=== PATIENT | female | born 1950 | race Caucasian/White ===

== ENCOUNTER → 2017-02-04 | Outpatient (CLI) | payer OTHER | LOC: FIMAGING 08:35 | PROVIDERS: ATTEND Physical Medicine & Rehabilitation | DX: M51.36 Other intervertebral disc degeneration, lumbar region (principal); M12.88 Other specific arthropathies, not elsewhere classified, other specified site; M99.73 Connective tissue and disc stenosis of intervertebral foramina of lumbar region; M51.27 Other intervertebral disc displacement, lumbosacral region ==

== ENCOUNTER 2018-05-09 08:52 | Observation (INO) | payer OTHER ==
[~2018-05-09 08:52] MED LIST: POVIDONE-IODINE 20 ML in SODIUM CL IRRIG SOLUTION 500 ML IRR ONE; ROPIVACAINE 0.2% 80 MG, EPINEPHrine 0.2 MG in SYRINGE 0 ML IU ONE; TRANEXAMIC ACID 1,000 MG in NS 100 ML IV ONE; TRANEXAMIC ACID 3,000 MG in NS (SYRINGE) 50 ML IRR ONE
[2018-05-09] MEDS ORDERED: DEXAMETHASONE 4 MG/ML VIAL IVP ONE (09:17)
[2018-05-09] MEDS ORDERED: ceFAZolin 2 GM/DEXTROSE 100 ML IV ONE (09:17)
[2018-05-09] MEDS ORDERED: FAMOTIDINE 20 MG TAB PO ONE (09:17)
[2018-05-09] MEDS ORDERED: LIDOCAINE 1% 2 ML INJ ID PRN (09:17)
[2018-05-09] MEDS ORDERED: ONDANSETRON 4 MG/2 ML VIAL IVP ONE (09:17)
[2018-05-09] MEDS ORDERED: LR 1,000 ML IV ONE (09:17)
[2018-05-09] MEDS ORDERED: GABAPENTIN 300 MG CAP PO ONE (09:17)
[2018-05-09] MEDS ORDERED: ACETAMINOPHEN 325 MG TAB PO ONE (09:17)
--- NOTE | 2018-05-09 09:50 | POSTANESTH ---
Post Anesthetic Evaluation Cardiovascular Status: Normal, Stable Respiratory Status: Normal, Stable Level of Consciousness/Mental Status: Can Participate in Eval, Mildly Sleepy, Arousable Pain Control: Adequate, Prn Tx Ordered Nausea/Vomiting Control: Adequate, Prn Tx Ordered Complications Possibly Related to Anesthesia: None Noted
--- NOTE | 2018-05-09 10:09 | PDANEPAE ---
ANE History of Present Illness 67 yo female with DEONTE for R TKA. ANE Past Medical History - Cardiovascular History Hx Hypertension: No Hx Arrhythmias: No Hx Chest Pain: No Hx Coronary Artery / Peripheral Vascular Disease: No Hx CHF / Valvular Disease: No Hx Palpitations: No Cardiovascular History Comment: high cholesterol - Pulmonary History Hx COPD: No Hx Asthma/Reactive Airway Disease: No Hx Recent Upper Respiratory Infection: No Hx Oxygen in Use at Home: No Hx Sleep Apnea: Yes Sleep Apnea Screening Result - Last Documented: Positive Pulmonary History Comment: deonte positive uses cpap - Neurologic History Hx Cerebrovascular Accident: No Hx Seizures: No Hx Dementia: No Neurologic History Comment: restless leg syndrome - Endocrine History Hx Diabetes: No Hypothyroid: No Hyperthyroid: No Obesity: mild - Renal History Hx Renal Disorders: No Renal History Comment: kidneys had issues when she received high doses of ibuprofen 9 or 10 years ago - Liver History Hx Hepatic Disorders: No - Neurological & Psychiatric Hx Hx Neurological and Psychiatric Disorders: Yes Neurological / Psychiatric History Comment: depression - Cancer History Hx Cancer: Yes 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 HX HEMORRHOIDS - Other Health History Other Health History: wears glasses. arthritis to spine and knees - Chronic Pain History Chronic Pain: Yes (bilateral knees, hips and spine) - Surgical History Prior Surgeries: 2018 left hand trigger finger repair with [place]. 07/08/14 right shoulder RTC repair with [facility]. ANGIOGRAM NL 20 Y AGO FOR PALPATATIONS. L MID TRIGGER FINGER . BALLOON SINUS SURG . PART LUMPECTOMY R BENIGN, 4 Y AGO. SILICONE IMPLANTS DARLENE TEAR DUCTS. . APPY. DARLENE FOOT SURG. D AND C. TONSILS ANE Review of Systems Review of Systems: - Exercise capacity METS (RN): 4 METS - Systems Constitutional: Reports: no symptoms Cardiac: Reports: no symptoms Respiratory: Reports: no symptoms Muscolosketal: Reports: back pain, joint pain ANE Patient History - Allergies Allergies/Adverse Reactions: ibuprofen Allergy (Unknown, Verified 05/08/18 14:17) Other-Enter Comments Penicillins Allergy (Unknown, Verified 05/08/18 14:17) Dyspnea - Home Medications Home Medications: Ezetimibe [Zetia 10 MG (*)] 10 mg PO HS 06/26/14 [Last Taken 05/08/18] rOPINIRole HCL [Requip 1mg (*)] 1 mg PO HS 06/26/14 [Last Taken 05/08/18] Gabapentin [Neurontin 300 MG (*)] 300 mg PO TID@,04/24/18 [Last Taken 05/08] traZODone [traZODONE 50MG (*)] 50 mg PO HS 04/24/18 [Last Taken 05/08/18] Atorvastatin Calcium [Lipitor 40 mg (*)] 40 mg PO HS 05/08/18 [Last Taken ] Gabapentin [Neurontin 300 MG (*)] 300 mg PO HS 05/08/18 [Last Taken 05/08/18] rOPINIRole HCL [Ropinirole ER] 2 mg PO HS 05/08/18 [Last Taken 05/08/18] - NPO status NPO Since - Liquids (Date): 05/09/18 NPO Since - Liquids (Time): 07:00 (8 oz Gatorade) NPO Since - Solids (Date): 05/08/18 NPO Since - Solids (Time): 21:00 - Anes Hx Hx Anesthesia Complications (with details): pentothal caused an unpleasant feeling - Smoking Hx Smoking Status: Never smoked Marijuana use: No - Alcohol Use Alcohol Use: None - Family Anes Hx Family Anes Hx: neg - N/A Family Hx Anesthesia Complications: NONE ANE Labs/Vital Signs - Vital Signs Blood Pressure: 136/68 Heart Rate: 69 Respiratory Rate: 18 O2 Sat (%): 94 (ranged from 86-94% during interview) Height: 162.56 cm Weight: 86.183 kg ANE Physical Exam - Airway Mallampati Score: Class 3 (short TMD) Mouth exam: normal dental/mouth exam, small mouth opening - Pulmonary Pulmonary: clear to auscultation - Cardiovascular Cardiovascular: regular rate and rhythym - ASA Status ASA Status: III ANE Anesthesia Plan Anesthesia Plan: spinal Regional Anesthesia: continuous NB, adductor canal FNB, POPC/PSR
[2018-05-09] MEDS ORDERED: VANCOMYCIN 1 GM VIAL ONE (10:15)
[2018-05-09] MEDS ORDERED: TRANEXAMIC ACID 3,000 MG/50 ML BAG IRR ONE (10:15)
[2018-05-09] MEDS ORDERED: ceFAZolin 1 GM/5 ML SYR ONE (10:16)
[2018-05-09] MEDS ORDERED: fentaNYL 100 MCG/2 ML INJ ONE (10:29)
[2018-05-09] MEDS ORDERED: LIDOCAINE 2% 5 ML SDV ONE (10:29)
[2018-05-09] MEDS ORDERED: PROPOFOL/EMULSION 500 MG/50 ML BOTTLE IV ONE ×2 (10:30)
[2018-05-09] MEDS ORDERED: BUPIVACAINE/DEXTROSE 7.5MG/ML 2 ML SPINAL AMP SP ONE (10:30)
[2018-05-09] MEDS ORDERED: ROPIVACAINE HCL 150 MG/30 ML INJ ONE (11:45)
[2018-05-09] MEDS ORDERED: ALBUTEROL 3 ML DEYVIAL IH PRN (12:30)
[2018-05-09] MEDS ORDERED: fentaNYL 100 MCG/2 ML INJ IVP PRN (12:30)
[2018-05-09] MEDS ORDERED: PROMETHAZINE HCL 25 MG/ML INJ IVP PRN ×2 (12:30→12:51)
[2018-05-09] MEDS ORDERED: NALOXONE HCL 0.4 MG/ML INJ IVP PRN (12:30)
[2018-05-09] MEDS ORDERED: oxyCODONE IR 5 MG TAB PO PRN ×2 (12:30→12:51)
[2018-05-09] MEDS ORDERED: LR 500 ML IV PRN (12:30)
[2018-05-09] MEDS ORDERED: DIAZEPAM 5 MG/ML 1 ML SYR IVP PRN (12:30)
[2018-05-09] MEDS ORDERED: diphenhydrAMINE 25 MG CAP PO PRN (12:51)
[2018-05-09] MEDS ORDERED: NS 500 ML IV PRN (12:51)
[2018-05-09] MEDS ORDERED: MAGNESIUM HYDROXIDE 30 ML UDCUP PO PRN (12:51)
[2018-05-09] MEDS ORDERED: BISACODYL 10 MG SUPP PR PRN (12:51)
[2018-05-09] MEDS ORDERED: CYCLOBENZAPRINE 10 MG TAB PO PRN (12:51)
[2018-05-09] MEDS ORDERED: ONDANSETRON DISINTEGRATING 4 MG TAB PO PRN (12:51)
[2018-05-09] MEDS ORDERED: DIPHENOXYLATE/ATROPINE LOMOTIL 1 TAB PO PRN (12:51)
[2018-05-09] MEDS ORDERED: PROMETHAZINE HCL 25 MG SUPPR PR PRN (12:51)
[2018-05-09] MEDS ORDERED: ONDANSETRON 4 MG/2 ML VIAL IVP PRN (12:51)
[2018-05-09] MEDS ORDERED: LACTULOSE 20 GM/30 ML UDCUP PO PRN (12:51)
[2018-05-09] MEDS ORDERED: METOCLOPRAMIDE 10 MG/2 ML VIAL IVP PRN (12:51)
[2018-05-09] MEDS ORDERED: POLYETHYLENE GLYCOL 3350 17 GM PKT PO PRN (12:51)
[2018-05-09] MEDS ORDERED: TEMAZEPAM 15 MG CAP PO PRN (12:51)
--- NOTE | 2018-05-09 12:51 | PDHPUP ---
History & Physical Update H&P update statement: This history and physical update is based on an assessment of the patient which was completed after admission or registration (within 24 hours), but prior to the surgery/procedure. H&P update: H&P reviewed & patient examined
--- NOTE | 2018-05-09 12:52 | POSTOPPROG ---
Post Op Note Date of Operation: 05/09/18 Surgeon: Deo Harding Kiln Placer: Stuart Anesthesiologist: Rahel Anesthesia: IV Sedation, Spinal Post-op Diagnosis: left knee arthtitis Procedure: L TKA Inf/Abcess present in the surg proc area at time of surgery?: No EBL: 50-100 (ACB in PACU)
[2018-05-09] MEDS ORDERED: LR 1,000 ML IV SCH (13:00)
--- NOTE | 2018-05-09 13:22 | GOP ---
DATE OF OPERATION: 05/09/2018 SURGEON: Deo Harding MD CLIENT SUPPORT PROFESSIONAL: ALMAZ Santacruz [facility] ANESTHESIA: Combination of Marcaine spinal, IV sedation, and adductor canal block. ANESTHESIOLOGIST: Yolanda Khan MD PREOPERATIVE DIAGNOSIS: Left knee severe degenerative arthritis. POSTOPERATIVE DIAGNOSIS: Left knee severe degenerative arthritis. PROCEDURE PERFORMED: 05/09/2018: Left total knee arthroplasty, cemented, Baird and Nephew Journey I I, posterior stabilized. FINDINGS: ESTIMATED BLOOD LOSS: Following inflation of the tourniquet was about 100 cc. DESCRIPTION OF PROCEDURE: The patient was given 2 g of IV Ancef preoperatively within 60 minutes of surgery. She also received 1000 mg of IV tranexamic acid preoperatively. She was placed on the oper ating room table and given spinal anesthesia with Marcaine by Dr. Khan. She was then placed supin e and given IV sedation. A Velasco catheter was not used. She wore a SUZY stocking and SCD on the nono perative leg. A bolster was placed under her left hip to prevent excessive external rotation of the left leg. Her left lower extremity was prepped with ChloraPrep from the upper thigh tourniquet to th e tips of the toes. It was draped free using sterile sheets, stockinette, and Ioban plastic adhesive drapes. Her lower leg was wrapped with compressive Coban. The leg was exsanguinated with elevation and a 6-inch compressive wrap, and the tourniquet was inflated to 250 mmHg. The World Health Organization timeout was performed to verify the correct patient identity and the co rrect surgical side and site. The [place] timeout was also performed. The Garibay leg holding device was sterilely attached to the operating room table and used throughout the procedure to help position the knee. A straight midline incision was made, centered on the santa lla. Subcutaneous tissues were sharply divided and hemostasis was obtained using electrocautery. A medial subcutaneous flap was developed, and the capsule and synovium were opened in a medial parapate llar fashion. Extensive degenerative changes were present in the medial compartment and, to a lesser degree, in the patellofemoral joint. The medial capsule and periosteum were elevated off the rim of the medial tibial plateau all the way around to the posteromedial corner. Her medial collateral lig ament was released enough to balance the medial side of the knee. In order to improve exposure, her patella was prepared first. The original thickness of the patella was measured. Peripheral osteophytes were removed. I cut a flat surface on the back of the patella. She was sized for a 35 mm round resurfacing component. I removed enough bone from the patella, suc h that the remaining bone plus the thickness of the patellar component recreated the original thickne ss of the patella. A composite thickness was 23 mm. The intramedullary alignment guide system was used to set up the distal femoral cut. The distal femu r was cut in 5 degrees of valgus. Because of a slight preoperative flexion contracture and because I was using a posterior stabilized component, I made a +2 mm cut on the distal femur. The sizing jig was used to determine proper femoral sizing. She was a true size 5. The 5-in-1 cutting block was ap plied, and the anterior and posterior condylar cuts and chamfer cuts were made. The final jig was us ed to remove the central portion of the distal femur to accommodate the posterior stabilized femoral component. I was careful to determine proper rotation by referencing off [place]'s line and other bony landmarks. Each cut was checked for accuracy. The femur was sized for a size 5 posterior stabi lized component. The trial component was tapped securely into place and was a good fit. Next, the tibia was prepared. Proximal tibial cut was made using the extramedullary alignment guide system. The cut was made in a few degrees of posterior slope. I was careful to achieve proper varus /valgus alignment and proper rotation. The posterior compartment was cleared of meniscal remnants. Osteophytes were removed from the back of her femoral condyles. I checked the flexion extension gaps , and they were equal, balanced and rectangular. The tibia was sized for a size 4 component. With t he trial components in place, I selected a 10 mm polyethylene posterior stabilized tibial insert. Th e knee came to full extension and flexed to 120 degrees. Her collateral ligaments were stable and ba lanced in 90 degrees of flexion and full extension. The trial patellar button was applied and tracki ng was checked. Tracking was excellent without any digital pressure. 40 mL of the joint anesthetic cocktail were injected into the capsule, the quadriceps muscle and tend on areas, and the subcutaneous tissues along the skin edges. The surfaces were prepared for cementing. They were carefully cleaned with the pulsating lavage irri gation and thoroughly dried. The CarboJet device was used to blow dry the cancellous surfaces. A do uble batch of methylmethacrylate cement with 2 g of powdered vancomycin added was mixed. While it wa s still in a doughy state, all 3 components were cemented in place. Excess cement was removed before it hardened. The 10 mm trial tibial insert was re-tried and was the proper thickness. The actual component was in serted and locked into place. The knee was thoroughly irrigated 1 final time with a dilute Betadine solution. The tourniquet was deflated. The total tourniquet time was 48 minutes. 50 cc of tranexamic acid was irrigated into the wound. The vastus medialis portion of the extensor mechanism was repaired with several interrupted figure-of -eight #2 FiberWire sutures. The capsule and synovium were closed first with multiple interrupted fi [id number] PDS sutures, followed by a running, #2, barbed, Ethicon, Stratafix, PDO suture. Subc utaneous tissues were closed with a running, 0, barbed, Ethicon, Stratafix, Monoderm suture. The ski n was closed with a running, 3-0, barbed, Ethicon, Stratafix, Monoderm, subcuticular suture. The ski n was sealed with half-inch Steri-Strips. The wound was covered with a large, Mepilex, waterproof, s urgical dressing and the knee was wrapped with a Kerlix and a 6-inch compressive wrap. A long-leg TE D stocking and SCD were applied, followed by the cooling device. She wore a stocking and SCD on the opposite leg during the procedure. The sacral Mepilex dressing was applied. I used a size 5 Baird and Nephew cemented Oxinium posterior-stabilized femoral component, size 4 ceme nted tibial base plate, a 10 mm posterior stabilized tibial insert, and a 35 mm cemented round all-po lyethylene resurfacing patellar component. COUNTS: The sponge and needle count were correct on 2 occasions. The patient was awakened from anesthesia, transferred to her [facility] and taken to PACU in sat isfactory condition. There were no recognized intraoperative complications. In the PACU, for additi onal postoperative pain control, Dr. Khan performed an adductor canal block with an indwelling cat heter. Marco A Vasquez and Michael Archuleta acted as surgical assistants. Their assistance was a medical necess ity for safe completion of the procedure. Copy requested to: Lobo Osborne MD [address] [facility] [id number] /[id number]/MODL
[2018-05-09] MEDS ORDERED: ceFAZolin 2 GM/DEXTROSE 100 ML IV SCH (14:00)
[2018-05-09] MEDS: ACETAMINOPHEN 325 MG TAB PO SCH (15:34)
[2018-05-09] MEDS: KETOROLAC 15 MG/1 ML SDV IVP SCH (16:59)
[2018-05-09] MEDS: ceFAZolin 2 GM/DEXTROSE 100 ML IV SCH (16:59)
[2018-05-09] MEDS: GABAPENTIN 300 MG CAP PO SCH (17:00)
[2018-05-09] MEDS ORDERED: traZODone 50 MG TAB PO SCH (21:00)
[2018-05-09] MEDS ORDERED: GABAPENTIN 300 MG CAP PO SCH (21:00)
[2018-05-09] MEDS ORDERED: EZETIMIBE 10 MG TAB PO SCH (21:00)
[2018-05-09] MEDS ORDERED: ROPINIROLE 2 MG PO SCH (21:00)
[2018-05-09] MEDS ORDERED: ATORVASTATIN CALCIUM 40 MG TAB PO SCH (21:00)
[2018-05-09] MEDS: traMADol 50 MG TAB PO PRN (21:18)
[2018-05-09] MEDS: SENNOSIDES/DOCUSATE SODIUM TAB PO SCH (21:18)
[2018-05-09] MEDS: FAMOTIDINE 20 MG TAB PO SCH (21:19)
[2018-05-09] MEDS: ASPIRIN 325 MG TAB PO SCH (21:40)
[2018-05-10] MEDS: KETOROLAC 15 MG/1 ML SDV IVP SCH ×4 (01:11→12:27)
[2018-05-10] MEDS: ACETAMINOPHEN 325 MG TAB PO SCH ×3 (01:11→12:21)
[2018-05-10] MEDS: ceFAZolin 2 GM/DEXTROSE 100 ML IV SCH (01:12)
[2018-05-10] MEDS ORDERED: ROPIVACAINE HCL 150 MG/30 ML INJ ONE (07:18)
--- NOTE | 2018-05-10 07:30 | SOAPPROG ---
SOAP Progress Note Assessment/Plan: Assessment: Awake and alert. Mild pain so far. Vital signs are stable. H&H are good. Postop films look excellent. Plan: Up with physical therapy today. Standing long alignment film. Discharge later today. 05/10/18 07:30 Objective: Vital Signs Temp Pulse Resp BP Pulse Ox 36.9 C 62 16 117/78 95 05/10/18 04:00 05/10/18 04:00 05/10/18 04:00 05/10/18 04:00 05/10/18 04:00 Laboratory Results 05/10/18 05:15 05/09/18 05/10/18 05/11/18 05:59 05:59 05:59 Intake Total 1710 Output Total 825 Balance 885 ICD10 Worksheet Patient Problems: Problems Problem Status Onset Osteoarthritis of left knee Acute Rotator cuff tear, right Acute
[2018-05-10] MEDS ORDERED: FERROUS SULFATE 325 MG TAB PO SCH (08:00)
[2018-05-10] MEDS ORDERED: LIPID EMULSION 20% 100 ML IV PRN (08:01)
--- NOTE | 2018-05-10 08:22 | PDPAINCON ---
Pain Management Consultation Patient referred by : Mehdi - Subjective Pain is: under control Side effects include: No drowsy, No itchiness, No rash Activity: able to ambulate, participating in PT - Objective Technique: continuous peripheral nerve block Continuous infusion: ropivicaine (0.5%) Catheter site: clean, dry, intact, no erythema/edema/exudate Sensory and motor exam: consistent with block Vital signs: stable - Assessment/Plan Assessment/Plan: pain well-controlled, continue current mgmt Additional comments: POD 1 s/p TKA with AC catheter in place. Re-dosed with ropivacaine 0.5% 25ml and catheter removed without complication. D/c home today.
--- NOTE | 2018-05-10 08:30 | ASMTDCNOTE ---
Case Management Discharge Discharge Order Complete? Answers: Yes Discharge Comments Notes: Pt being discharged independently. Pt rec outpatient therapy. No other CM needs identified. Date Signed: 05/10/2018 08:29 AM Electronically Signed By:JAY Bowman
[2018-05-10 09:06] VITALS: BP 92/49
--- NOTE | 2018-05-10 09:47 | GDS ---
ADMISSION DIAGNOSIS: Left knee degenerative arthritis. DISCHARGE DIAGNOSIS: Left knee degenerative arthritis. OPERATION PERFORMED: 05/09/18, left total knee arthroplasty. POSTOPERATIVE COMPLICATIONS: None. CONDITION ON DISCHARGE: Improved. DESCRIPTION OF HOSPITAL COURSE: The patient was admitted to the hospital on the morning of surgery. The same day, under a combination of Marcaine, spinal, IV sedation, and adductor canal block, she und erwent a left total knee arthroplasty. Postoperatively, she was treated with multimodal DVT prophylax is including aspirin. She was seen by Physical Therapy and made good progress with ambulation and sta irs. By the time of discharge, she was afebrile and was independent walking with a walker. DISPOSITION: The patient is discharged to her home. She will go to outpatient physical therapy in [facility]. She may progress to full weightbearing on the left as tolerated. Continue aspirin 325 mg p.o. daily for 21 days. She has prescriptions for oxycodone, tramadol, and Celebrex for pain control. I w ill see her back in the office on May 21, 2018. If there any problems, she is to call me at the office. Copy requested to: Dr. Lobo Olsen /[id number]/MODL
[2018-05-10] MEDS: ASPIRIN 325 MG TAB PO SCH (09:55)
[2018-05-10] MEDS: GABAPENTIN 300 MG CAP PO SCH (09:56)
[2018-05-10] MEDS: SENNOSIDES/DOCUSATE SODIUM TAB PO SCH (09:56)
[2018-05-10] MEDS: FAMOTIDINE 20 MG TAB PO SCH (09:56)
[2018-05-10] MEDS: traMADol 50 MG TAB PO PRN (12:21)
--- NOTE | 2018-05-10 14:47 | ASDISCHSUM ---
Discharge Information Plan Status:Home with No Needs Medically Cleared to Leave:05/09/2018 Discharge Date:05/10/2018 02:04 PM CM D/C Disposition:Home, Routine, Self-Care ADT D/C Disposition:Home, Routine, Self-Care Projected Discharge Date:05/10/2018 12:00 AM Transportation at D/C: Discharge Delay Reason: Follow-Up Date:05/10/2018 12:00 AM Discharge Slot: Final Diagnosis: Placement Information Patient Contact Information Contact Name:DOREEN Relationship: Address:[address] City:[place] Alternate Phone: [facility]/Zip Code:[place] [address] Email: Financial Information Financial Class:Medicare Primary Plan Desc:MEDICARE OUTPATIENT Primary Plan Number:[id number] Secondary Plan Desc:MARY LOU MCWILLIAMS Secondary Plan Number:[id number] Assessment Information Case Management Discharge Plan Note Case Management Discharge Discharge Order Complete? Answers: Yes Discharge Comments Notes: Pt being discharged independently. Pt rec outpatient therapy. No other CM needs identified. Date Signed: 05/10/2018 08:29 AM Electronically Signed By:JAY Bowman LACE OTF Length of stay for Answers: 2 days current admission Acuity / Level of Answers: No Care: Did the patient have an inpatient admission? Comorbidities - select Answers: Opioid dependence all that apply / Chronic pain # of Emergency department Answers: 0 visits in the last 6 months Social determinants Answers: Mental health diagnosis (anxiety, depression, pers onality disorders, etc.) Score: 9 Date Signed: 05/10/2018 02:46 PM Electronically Signed By:JAY Bowman Intervention Information
== END 2018-05-10 14:04 | disposition home or self-care (01) ==
LOC: FSGY 08:52 → F3N 12:51
PROVIDERS: ADMIT Orthopaedic Surgery; ATTEND Orthopaedic Surgery
PROC: 0SRD069 Replacement of Left Knee Joint with Oxidized Zirconium on Polyethylene Synthetic Substitute, Cemented, Open Approach (ICD-10-PCS; principal; 2018-05-09 11:00)
DX: M17.12 Unilateral primary osteoarthritis, left knee (principal); G47.33 Obstructive sleep apnea (adult) (pediatric)
CPT/HCPCS: 27447; 73560; 77073; 88311; 97110; 97116; 97161; 97165; 97530; C1713; C1776; J0171; J0690; J1100; J1885; J2405; J2704; J2795; J3010; J3370

== ENCOUNTER 2018-07-10 07:15 | Observation (INO) | payer OTHER ==
--- NOTE | 2018-06-25 15:51 | GHP ---
[f rep st] PREOP HISTORY AND PHYSICAL DATE OF ADMISSION: 07/10/2018 PROBLEM: Right knee degenerative arthritis. HISTORY OF PRESENT ILLNESS: The patient is a 68-year-old woman admitted for a right total knee arthr oplasty. She is approximately 7 weeks following her left total knee arthroplasty. She is making goo d progress. Her right knee has been progressively more painful over the last couple of years. She h as failed cortisone injections. Her pain is now very limiting. She is admitted for a right total kn ee arthroplasty. She has failed nonsurgical treatment. PAST MEDICAL HISTORY: She is treated for sleep apnea. She also has restless legs syndrome. No hist ory of heart disease, stents, DVT, hepatitis, MRSA staph infections, or bleeding disorders. CURRENT MEDICATIONS: Zetia for cholesterol. She takes gabapentin 900 mg per day for spinal pain and restless legs syndrome. She also takes ropinirole extended release 2 mg for restless legs syndrome. ALLERGIES: Drug allergies: Penicillin. She also avoids ibuprofen because she is afraid of renal dam age. Metal allergy: None. Latex allergy: None. SOCIAL HISTORY: The patient is . She is retired. She does not smoke cigarettes or drink alc ohol. FAMILY HISTORY: Positive for cancer and heart disease. PHYSICAL EXAMINATION: VITAL SIGNS: Height 5 feet 4 inches, weight 190 pounds, BMI 33.6. EYES: Con junctivae and sclerae are clear. Pupils are round and reactive. MOUTH: Good oral hygiene. No loos e teeth. CHEST: Clear. HEART: Regular rhythm. No murmurs. EXTREMITIES: Pertinent findings limi mitchell to her right knee. She has a small effusion. Increased valgus alignment. She has a 5 degree fl exion contracture and further flexion to 105 degrees. IMAGING: Her films show advanced degenerative arthritis, primarily involving the lateral compartment . She has mild patellofemoral arthritis. IMPRESSION ON ADMISSION: 1. Right knee degenerative arthritis with valgus deformity. 2. Seven weeks status post left total knee arthroplasty with good progress. 3. Treatment for sleep apnea. 4. Treatment for elevated cholesterol. 5. Treatment for restless legs syndrome. PLAN: She will undergo a right total knee arthroplasty. The surgery has been described to her, incl uding the risks, complications, expectations, and recovery time. I have advised her that there can b e small [id number] differences in the recovery and in the final result with bilateral procedures. I have also advised her that 10% to 15% of people do not get a good result with a total knee replacem ent, and sometimes, we cannot correct that. All her questions have been answered and she consents to surgery. Copy requested to: Dr. Lobo Olsen, [place] /[id number]/MODL
[~2018-07-10 07:15] MED LIST changes: -ROPIVACAINE 0.2% 80 MG, EPINEPHrine 0.2 MG in SYRINGE 0 ML IU ONE; +ROPIVACAINE 0.2% 80 MG, EPINEPHrine 0.2 MG, KETOROLAC TROMETHAMINE 30 MG in SYRINGE 0 ML IU ONE
[2018-07-10] MEDS ORDERED: DEXAMETHASONE 4 MG/ML VIAL IVP ONE (10:08)
[2018-07-10] MEDS ORDERED: ONDANSETRON 4 MG/2 ML VIAL IVP ONE (10:08)
[2018-07-10] MEDS ORDERED: ACETAMINOPHEN 325 MG TAB PO ONE (10:08)
[2018-07-10] MEDS ORDERED: GABAPENTIN 300 MG CAP PO ONE (10:08)
[2018-07-10] MEDS ORDERED: FAMOTIDINE 20 MG TAB PO ONE (10:08)
[2018-07-10] MEDS ORDERED: ceFAZolin 2 GM/DEXTROSE 100 ML IV ONE (10:08)
[2018-07-10] MEDS ORDERED: LR 1,000 ML IV ONE (10:10)
[2018-07-10] MEDS ORDERED: VANCOMYCIN 1 GM VIAL ONE (10:17)
[2018-07-10] MEDS ORDERED: TRANEXAMIC ACID 3,000 MG/50 ML BAG IRR ONE (10:17)
[2018-07-10] MEDS ORDERED: ceFAZolin 1 GM/5 ML SYR ONE (10:18)
[2018-07-10] MEDS ORDERED: PROPOFOL/EMULSION 500 MG/50 ML BOTTLE IV ONE ×2 (11:36→11:37)
[2018-07-10] MEDS ORDERED: BUPIVACAINE/DEXTROSE 7.5MG/ML 2 ML SPINAL AMP SP ONE (11:37)
[2018-07-10] MEDS ORDERED: ROPIVACAINE HCL 150 MG/30 ML INJ ONE ×2 (11:37)
[2018-07-10] MEDS ORDERED: MIDAZOLAM 2 MG/2 ML VIAL IVP ONE (11:45)
--- NOTE | 2018-07-10 11:46 | PDANEPAE ---
ANE History of Present Illness right knee pain ANE Past Medical History - Cardiovascular History Hx Hypertension: No Hx Arrhythmias: No Hx Chest Pain: No Hx Coronary Artery / Peripheral Vascular Disease: No Hx CHF / Valvular Disease: No Hx Palpitations: No Cardiovascular History Comment: high cholesterol - Pulmonary History Hx COPD: No Hx Asthma/Reactive Airway Disease: No Hx Recent Upper Respiratory Infection: No Hx Oxygen in Use at Home: No Hx Sleep Apnea: Yes Sleep Apnea Screening Result - Last Documented: Positive Pulmonary History Comment: margarita positive uses cpap - Neurologic History Hx Cerebrovascular Accident: No Hx Seizures: No Hx Dementia: No Neurologic History Comment: restless leg syndrome - Endocrine History Hx Diabetes: No Hypothyroid: No Hyperthyroid: No Obesity: moderate - Renal History Hx Renal Disorders: No Renal History Comment: kidneys had issues when she received high doses of ibuprofen 9 or 10 years ago - Liver History Hx Hepatic Disorders: No - Neurological & Psychiatric Hx Hx Neurological and Psychiatric Disorders: Yes Neurological / Psychiatric History Comment: depression - Cancer History Hx Cancer: Yes 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 HX HEMORRHOIDS - Other Health History Other Health History: wears glasses. arthritis to spine and knees - Chronic Pain History Chronic Pain: Yes (bilateral knees, hips and spine) - Surgical History Prior Surgeries: LT TOTAL KNEE 05/2018. 2018 left hand trigger finger repair with [facility]. 07/08/14 right shoulder RTC repair with [place]. ANGIOGRAM NL 20 Y AGO FOR PALPATATIONS. L MID TRIGGER FINGER . BALLOON SINUS SURG . PART LUMPECTOMY R BENIGN, 4 Y AGO. SILICONE IMPLANTS DARLENE TEAR DUCTS. . APPY. DARLENE FOOT SURG. D AND C. TONSILS ANE Review of Systems Review of systems is: negative Review of Systems: - Exercise capacity Exercise capacity: >=4 METS METS (RN): 4 METS ANE Patient History - Allergies Allergies/Adverse Reactions: ibuprofen Allergy (Unknown, Verified 05/08/18 14:17) Other-Enter Comments Penicillins Allergy (Unknown, Verified 05/08/18 14:17) Dyspnea - Home Medications Home medications: home medication list seen and reviewed Home Medications: Ezetimibe [Zetia 10 MG (*)] 10 mg PO HS 06/26/14 [Last Taken 07/09/18] rOPINIRole HCL [Requip 1mg (*)] 1 mg PO HS 06/26/14 [Last Taken 07/09/18] Gabapentin [Neurontin 300 MG (*)] 300 mg PO DAILY 04/24/18 [Last Taken 07/09/18] traZODone [traZODONE 50MG (*)] 50 mg PO HS 04/24/18 [Last Taken 07/09/18] Atorvastatin Calcium [Lipitor 40 mg (*)] 40 mg PO HS 05/08/18 [Last Taken ] Gabapentin [Neurontin 300 MG (*)] 600 mg PO HS 05/08/18 [Last Taken 07/09/18] rOPINIRole HCL [Ropinirole ER] 2 mg PO HS 05/08/18 [Last Taken 07/10/18] Aspirin [Aspirin 81mg (*)] 81 mg PO DAILY 06/19/18 [Last Taken 1 Week Ago ~07/03] Propylene Glycol/Peg 400/Pf [Systane Ultra 0.4-0.3% Eye Drp] 1 each OP DAILY PRN 06/19/18 [Last Taken 07/10/18] - NPO status NPO Status: no food or drink >8 hours NPO Since - Liquids (Date): 07/10/18 NPO Since - Liquids (Time): 06:00 NPO Since - Solids (Date): 07/09/18 NPO Since - Solids (Time): 19:30 - Anes Hx Anes Hx: no prior problems - Smoking Hx Smoking Status: Never smoked - Family Anes Hx Family Hx Anesthesia Complications: NONE ANE Labs/Vital Signs - Vital Signs Vital Signs: reviewed preoperatively; see RN documention for details Blood Pressure: 122/72 Heart Rate: 83 Respiratory Rate: 16 O2 Sat (%): 92 Height: 162.56 cm Weight: 86.183 kg ANE Physical Exam - Airway Neck exam: FROM Mallampati Score: Class 2 Mouth exam: small mouth opening - Pulmonary Pulmonary: no respiratory distress, clear to auscultation - Cardiovascular Cardiovascular: regular rate and rhythym - ASA Status ASA Status: III ANE Anesthesia Plan Anesthesia Plan: spinal Regional Anesthesia: continuous NB, adductor canal FNB
[2018-07-10] MEDS ORDERED: DEXAMETHASONE 4 MG/ML VIAL IVP PRN (14:41)
[2018-07-10] MEDS ORDERED: ALBUTEROL 3 ML DEYVIAL IH PRN (14:41)
[2018-07-10] MEDS ORDERED: LABETALOL HCL 5 MG/ML 20 ML MDV IVP PRN (14:41)
[2018-07-10] MEDS ORDERED: METOCLOPRAMIDE 10 MG/2 ML VIAL IVP PRN ×2 (14:41→15:44)
[2018-07-10] MEDS ORDERED: PHENYLEPHRINE HCL 100 MCG/ML SYR IVP PRN (14:41)
[2018-07-10] MEDS ORDERED: PROMETHAZINE HCL 25 MG/ML INJ IVP PRN ×2 (14:41→15:44)
[2018-07-10] MEDS ORDERED: fentaNYL 100 MCG/2 ML INJ IVP PRN (14:41)
[2018-07-10] MEDS ORDERED: ACETAMINOPHEN 500 MG TAB PO PRN (14:41)
[2018-07-10] MEDS ORDERED: NALOXONE HCL 0.4 MG/ML INJ IVP PRN (14:41)
[2018-07-10] MEDS ORDERED: HYDROmorphONE/DILAUDID 2 MG/ML INJ IVP PRN (14:41)
[2018-07-10] MEDS ORDERED: LR 500 ML IV PRN (14:41)
[2018-07-10] MEDS ORDERED: ONDANSETRON 4 MG/2 ML VIAL IVP PRN ×2 (14:41→15:44)
[2018-07-10] MEDS ORDERED: MEPERIDINE 25 MG/0.5 ML AMP IVP PRN (14:41)
[2018-07-10] MEDS ORDERED: oxyCODONE IR 5 MG TAB PO PRN (14:41)
[2018-07-10] MEDS ORDERED: CARBOXYMETHYLCELLULOSE 0.5% 0.4 ML DROPERETTE OP PRN (15:43)
[2018-07-10] MEDS ORDERED: DIPHENOXYLATE/ATROPINE LOMOTIL 1 TAB PO PRN (15:44)
[2018-07-10] MEDS ORDERED: ONDANSETRON DISINTEGRATING 4 MG TAB PO PRN (15:44)
[2018-07-10] MEDS ORDERED: traMADol 50 MG TAB PO PRN (15:44)
[2018-07-10] MEDS ORDERED: PROMETHAZINE HCL 25 MG SUPPR PR PRN (15:44)
[2018-07-10] MEDS ORDERED: BISACODYL 10 MG SUPP PR PRN (15:44)
[2018-07-10] MEDS ORDERED: MAGNESIUM HYDROXIDE 30 ML UDCUP PO PRN (15:44)
[2018-07-10] MEDS ORDERED: TEMAZEPAM 15 MG CAP PO PRN (15:44)
[2018-07-10] MEDS ORDERED: POLYETHYLENE GLYCOL 3350 17 GM PKT PO PRN (15:44)
[2018-07-10] MEDS ORDERED: LACTULOSE 20 GM/30 ML UDCUP PO PRN (15:44)
[2018-07-10] MEDS ORDERED: NS 500 ML IV PRN (15:44)
[2018-07-10] MEDS ORDERED: CYCLOBENZAPRINE 10 MG TAB PO PRN (15:44)
[2018-07-10] MEDS ORDERED: diphenhydrAMINE 25 MG CAP PO PRN (15:44)
[2018-07-10] MEDS ORDERED: fentaNYL 100 MCG/2 ML INJ ONE (15:47)
[2018-07-10] MEDS ORDERED: LR 1,000 ML IV SCH (16:00)
--- NOTE | 2018-07-10 16:28 | POSTANESTH ---
Post Anesthetic Evaluation Cardiovascular Status: Normal, Stable Respiratory Status: Normal, Stable Level of Consciousness/Mental Status: Can Participate in Eval Pain Control: Adequate, Prn Tx Ordered Nausea/Vomiting Control: Adequate, Prn Tx Ordered Complications Possibly Related to Anesthesia: None Noted
--- NOTE | 2018-07-10 17:14 | GOP ---
[f rep st] OPERATIVE REPORT DATE OF OPERATION: 07/10/2018 SURGEON: Deo Harding MD FILING WRITER: Sergio Vasquez, PAC and Michael Archuleta RUNNER OUT ANESTHESIA: A combination of Marcaine, spinal, IV sedation, and adductor canal block. ANESTHESIOLOGIST: Dr. Woods, PREOPERATIVE DIAGNOSIS: Right knee severe degenerative arthritis with mild valgus deformity. POSTOPERATIVE DIAGNOSIS: Right knee severe degenerative arthritis with mild valgus deformity. PROCEDURE PERFORMED: Right total knee arthroplasty, cemented, Baird and Journey II, posterior stabil ized. FINDINGS: DESCRIPTION OF PROCEDURE: The patient was given 2 g of IV Ancef preoperatively within 60 minutes of surgery. She also received a 1000 mg of IV tranexamic acid preoperatively. She was placed on the op erating room table and given spinal anesthesia with Marcaine by Dr. Woods. She was then placed jacinto pine and given IV sedation. A Velasco catheter was not used. She wore a SUZY stocking and SCD on the n onoperative leg. A small bolster was placed under her right hip to prevent excessive external rotati on of her leg. The right lower extremity was prepped with ChloraPrep from the upper thigh tourniquet to the tips of the toes. It was draped free using sterile sheets, stockinette, and Ioban plastic ad hesive drape. The lower leg was wrapped with compressive Coban. The leg was exsanguinated with elev ation and a 6-inch compressive wrap, and pneumatic tourniquet was inflated to 300 mmHg. The World [employer] Organization time-out was performed to verify the correct patient identity and the c orrect surgical side and site. The [place] time-out was also performed. The [employer] leg holding device was sterilely attached to the operating room table and used throughout the procedure to help position the knee. A straight midline incision made centered on the patella. Subcutaneous tissues were sharply divided, and hemostasis was obtained using electrocautery. A media l subcutaneous flap was developed, and the capsule and synovium were opened in a medial parapatellar fashion. Extensive degenerative changes were present in her patellofemoral joint and lateral compart ment. The medial capsule and periosteum were lightly elevated off the rim of the medial tibial plate au all the way around to the posteromedial corner. In order to improve exposure, her patella was prepared first. The original thickness regional of the patella was measured. Peripheral osteophytes removed. I cut a flat surface on the back of the santa lla. It was sized for a 35 mm round resurfacing component. I removed enough bone from the patella, such that the remaining bone, plus the thickness of the patellar component recreated original thickne ss of the patella. The composite thickness was 23 mm. The intramedullary alignment guide system was used to set up the distal femoral cut. The distal femu r was cut in 6 degrees of valgus. She had a slight preoperative flexion contracture, and I was using the posterior stabilized femoral component, so I made a +2 mm cut on the distal femur. The sizing j ig was used to determine proper femoral sizing. She was a true size 5. The 5-in-1 cutting block was applied, and the anterior and posterior condylar cuts and chamfer cuts were made. The final jig was used to remove the central portion of the distal femur to accommodate the posterior stabilized femor al component. I was careful to determine proper rotation by referencing off Whitesides line and othe r bony landmarks. Each cut was checked for accuracy before and after it was made. The femur was siz ed for a size 5 posterior stabilized component. Next, the tibia was prepared. The proximal tibial cut was made using the extramedullary alignment gu dandre system. The cut was made in a few degrees of posterior slope. I was careful to achieve proper v arus-valgus alignment and proper rotation. The posterior compartment was cleared of meniscal remnant s. Osteophytes were removed from the back of her femoral condyles. I checked the flexion extension gaps, and they were equal and balanced and rectangular. The tibia was sized for a size 4 component. With the trial components in place, I selected a 10 mm polyethylene posterior stabilized tibial inse rt. The knee came to full extension, flexed to 130 degrees. Her collateral ligaments were stable an d balanced in 90 degrees of flexion and full extension. The trial button was applied, and tracking w as checked. She had excellent tracking without any digital pressure. 40 cc of joint anesthetic cocktail were injected in the posterior capsule, the quadriceps muscle and tendon areas, and the subcutaneous tissues along the skin edges. The surfaces were prepared for cementing. They were carefully cleaned with the pulsating lavage irri gation and thoroughly dried. The CarboJet device was used to blow dry the cancellous surfaces. A do uble batch of high viscosity methylmethacrylate cement with 2 g of powdered vancomycin was added. Wh ile it was still in a doughy state, all 3 components were cemented in place. Excess cement was remov ed before it hardened. The 10 mm trial tibial insert was re-tried and was the proper thickness. The actual component was in serted and locked into place. The knee was thoroughly irrigated 1 final time with a dilute Betadine solution. The tourniquet was deflated, the total tourniquet time was 46 minutes. 50 cc of tranexamic acid solu tion were irrigated into the wound. The vastus medialis portion of the extensor mechanism was repaired with several interrupted figure-of -eight #2 FiberWire sutures. The capsule and synovium were closed first with multiple interrupted fi [id number] PDS sutures, followed by a running. barbed Ethicon Stratafix PDO suture. Subcutaneou s tissues were closed with a running 0 barbed Ethicon Stratafix Monoderm suture. The skin was closed with a running 3-0 barbed Ethicon Stratafix Monoderm subcuticular suture. The skin was sealed with half-inch Steri-Strips. The wound was covered with a large Mepilex waterproof dressing and a 6-inch compressive wrap. A long-leg SUZY stocking and SCD were applied, followed by the cooling device. She wore a stocking and SCD on the opposite leg during the procedure. The sacral Mepilex dressing was a pplied. I used a size 5 Baird and Nephew cemented Oxinium posterior stabilized femoral component, a size 4 ce mented tibial base plate, a 10 mm posterior stabilized tibial insert, and a 35 mm cemented round all- polyethylene resurfacing patellar component. The estimated blood loss following deflation of the tourniquet was about 100 cc. The sponge and needle count were correct on 2 occasions. She was awakened from anesthesia, [facility], and taken to PACU in satisfacto ry condition. There were no recognized intraoperative complications. In the PACU, for additional po stoperative pain control, Dr. Woods performed an adductor canal block with an indwelling catheter. Marco A Vasquez and Michael Archuleta acted as surgical assistants. Their assistance was a medical necess ity. For state completion of the procedure. Copy requested to: Dr. Jake Olsen, [place] /[id number]/MODL
[2018-07-10] MEDS: KETOROLAC 15 MG/1 ML SDV IVP SCH (18:23)
[2018-07-10] MEDS ORDERED: ATORVASTATIN CALCIUM 40 MG TAB PO SCH (21:00)
[2018-07-10] MEDS ORDERED: EZETIMIBE 10 MG TAB PO SCH (21:00)
[2018-07-10] MEDS ORDERED: GABAPENTIN 300 MG CAP PO SCH (21:00)
[2018-07-10] MEDS ORDERED: traZODone 50 MG TAB PO SCH (21:00)
[2018-07-10] MEDS ORDERED: (Ropinirole Hcl [Ropinirole Er] 2 MG) PO SCH (21:00)
[2018-07-10] MEDS: ceFAZolin 2 GM/DEXTROSE 100 ML IV SCH (21:47)
[2018-07-10] MEDS: SENNOSIDES/DOCUSATE SODIUM TAB PO SCH (21:48)
[2018-07-10] MEDS: ACETAMINOPHEN 325 MG TAB PO SCH (21:48)
[2018-07-10] MEDS: ASPIRIN 325 MG TAB PO SCH (21:48)
[2018-07-10] MEDS: FAMOTIDINE 20 MG TAB PO SCH (21:49)
[2018-07-10] MEDS: oxyCODONE IR 5 MG TAB PO PRN (21:49)
[2018-07-11] MEDS: KETOROLAC 15 MG/1 ML SDV IVP SCH ×3 (00:14→12:36)
[2018-07-11] MEDS: oxyCODONE IR 5 MG TAB PO PRN ×2 (02:14→14:00)
[2018-07-11] MEDS: ACETAMINOPHEN 325 MG TAB PO SCH ×2 (04:44→09:05)
[2018-07-11] MEDS: ceFAZolin 2 GM/DEXTROSE 100 ML IV SCH (05:40)
[2018-07-11] MEDS ORDERED: ROPIVACAINE HCL 150 MG/30 ML INJ ONE (07:27)
[2018-07-11] MEDS ORDERED: LIPID EMULSION 20% 100 ML IV PRN (07:41)
[2018-07-11] MEDS ORDERED: FERROUS SULFATE 325 MG TAB PO SCH (08:00)
[2018-07-11] MEDS ORDERED: GABAPENTIN 300 MG CAP PO SCH (09:00)
[2018-07-11] MEDS: ASPIRIN 325 MG TAB PO SCH (09:05)
[2018-07-11] MEDS: FAMOTIDINE 20 MG TAB PO SCH (09:05)
[2018-07-11] MEDS: SENNOSIDES/DOCUSATE SODIUM TAB PO SCH (09:06)
--- NOTE | 2018-07-11 09:18 | PDPAINCON ---
Pain Management Consultation Patient referred by : Mehdi - Subjective Pain at rest (/10): 1 Pain with activity (/10): 1 Pain is: low, well controlled Side effects include: No drowsy, No itchiness, No nausea, No nausea/vomiting Activity: out of bed with assistance - Objective Technique: continuous peripheral nerve block Site: femoral Continuous infusion: ropivicaine Catheter site: clean, dry, intact, no erythema/edema/exudate Sensory and motor exam: consistent with block Vital signs: stable - Assessment/Plan Assessment/Plan: pain well-controlled, continue current mgmt Additional comments: Pt seen and examined. Catheter bolused with ropi 0.5% 30 ml, removed tip intact, atraumatic. Pt tolerated well.
--- NOTE | 2018-07-11 09:31 | SOAPPROG ---
SOAP Progress Note Assessment/Plan: Assessment: Awake and alert. Moderate pain. She has been up and walking in the room. Her dressing is dry. Postop H&H are good. Postop films look excellent. Plan: Continue physical therapy today for walking and stairs. Standing long leg alignment film prior to 07/11/18 09:30 07/11/18 09:30 Discharge later today. Objective: Vital Signs Temp Pulse Resp BP Pulse Ox 36.5 C 82 18 124/63 H 92 07/11/18 08:00 07/11/18 08:00 07/11/18 08:00 07/11/18 08:00 07/11/18 08:00 Laboratory Results 07/11/18 04:33 07/10/18 07/11/18 07/12/18 05:59 05:59 05:59 Intake Total 2705 350 Output Total 1220 300 Balance 1485 50 ICD10 Worksheet Patient Problems: Problems Problem Status Onset Osteoarthritis of right knee Acute Osteoarthritis of left knee Acute Rotator cuff tear, right Acute
--- NOTE | 2018-07-11 09:58 | GDS ---
[f rep st] DISCHARGE SUMMARY ADMISSION DIAGNOSIS: Right knee degenerative arthritis. DISCHARGE DIAGNOSIS: Right knee degenerative arthritis. OPERATION PERFORMED: 07/10/2018, a right total knee arthroplasty. POSTOPERATIVE COMPLICATIONS: None. CONDITION ON DISCHARGE: Improved. DESCRIPTION OF HOSPITAL COURSE: The patient was admitted to the hospital on the morning of surgery. Under a combination of Marcaine, spinal, IV sedation, and adductor canal block, she underwent a righ t total knee arthroplasty. Postoperatively, she was treated with multimodal DVT prophylaxis, includi ng aspirin. On the 1st postoperative day, her hemoglobin and hematocrit were 12.2 and 36.9. There w ere no problems with spontaneous urination. She was seen by Physical Therapy and made good progress with ambulation and stairs. By the time of discharge, she was afebrile, her wound was dry, and she w as independent walking with a walker. DISPOSITION: The patient discharged to her home. She will go to outpatient physical therapy. She m ay progress to full weightbearing on the right as tolerated. Use SUZY stockings for 1 week. Continue aspirin 325 mg p.o. daily for 21 days. She has prescriptions for oxycodone, tramadol, and Celebrex for pain control. I will see her back in the office on 07/30/2018. If there are any problems, she i s to call me at the office. Copy requested to: DO Pretty Crowder [place] /[id number]/MODL
--- NOTE | 2018-07-11 10:14 | ASMTLACE ---
OTF Length of stay for Answers: 2 days current admission Acuity / Level of Answers: No Care: Did the patient have an inpatient admission? 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
--- NOTE | 2018-07-11 10:15 | ASMTCMCOM ---
CM Note CM Note Notes: Pt had planned oA of knee, resides with spouse. PT and MD rec outpatient. No CM d/c needs identified. Date Signed: 07/11/2018 10:15 AM Electronically Signed By:PILI Blandon
[2018-07-11 12:09] VITALS: BP 110/64
== END 2018-07-11 14:02 | disposition home or self-care (01) ==
LOC: F2W 09:21 → F3N 10:22
PROVIDERS: ADMIT Orthopaedic Surgery; ATTEND Orthopaedic Surgery
PROC: 0SRC069 Replacement of Right Knee Joint with Oxidized Zirconium on Polyethylene Synthetic Substitute, Cemented, Open Approach (ICD-10-PCS; principal; 2018-07-10 13:15)
DX: M17.11 Unilateral primary osteoarthritis, right knee (principal); G25.81 Restless legs syndrome; G47.33 Obstructive sleep apnea (adult) (pediatric); Z88.0 Allergy status to penicillin
CPT/HCPCS: 27447; 73560; 77073; 88311; 97110; 97116; 97161; 97165; 97535; C1713; C1776; J0171; J0690; J1100; J1885; J2250; J2405; J2704; J2795; J3010; J3370